=== PATIENT | male | born 1995 | race Caucasian/White ===

== ENCOUNTER 2017-12-16 06:02 | Emergency (ER) | payer SELFPAY ==
--- NOTE | 2017-12-16 07:34 | ER Document Report ---
HPI - HPI Patient complains to provider of: Toothache Pain Level: 5 Context: Patient is a 22-year-old male who presents emergency department with a chief complaint of #11 tooth pain that started last evening. Patient states his been taking 200 mg Motrin at home. He does have a mild headache radiating from his tooth to along his eye. Denies any previous history of migraines. Denies any nausea or vomiting. Denies any vision changes, loss of vision. Has been able tolerate p.o. with any difficulty. Denies any foul odor or foul drainage, difficulty swallowing, difficulty breathing, facial swelling. Admits to temp yesterday of 101 has been fever free today - CONSTITUTIONAL Constitutional: REPORTS: Fever - NEURO Neurology: REPORTS: Headache - bilateral temporal Past Medical History - Social History Smoking Status: Current Every Day Smoker Chew tobacco use (# tins/day): No Frequency of alcohol use: Rare Drug Abuse: None Family History: Reviewed & Not Pertinent Patient has suicidal ideation: No Patient has homicidal ideation: No Renal/ Medical History: Denies: Hx Peritoneal Dialysis Vertical Provider Document - CONSTITUTIONAL Agree With Documented VS: Yes Notes: PHYSICAL EXAM GENERAL: Alert, interacts well. HEENT: NCAT, mild tenderness over tooth 11 without swelling, abscess. MMM, Uvula midline. Airway patent. No evidence of tonsillar enlargement, peritonsillar abscess, retropharyngeal abscess. no evidence of ludwigs angina LUNGS: Clear to auscultation bilaterally, no wheezes, rales, or rhonchi. No respiratory distress. HEART: Regular rate and rhythm. No murmurs, gallops, or rubs. EXTREMITIES: Moves all 4 extremities spontaneously. No edema, radial and dorsalis pedis pulses 2/4 bilaterally. No cyanosis. NEUROLOGICAL: Alert and oriented x4. Normal speech. PSYCH: Normal affect, normal mood. SKIN: Warm, dry, normal turgor. No rashes or lesions noted. - INFECTION CONTROL TRAVEL OUTSIDE OF THE [place] IN LAST 30 DAYS: No - RESPIRATORY O2 Sat by Pulse Oximetry: 96 Course - Re-evaluation Re-evalutation: 12/16/17 08:18 Presentation is most consistent with likely an infected tooth. Airway is patent. Vitals within normal limits. Patient is able swallow without any difficulty. There is no significant facial swelling. Patient will be started on antibiotics and a limited number of pain medications. I've instructed to follow-up with dentistry as earliest ability for definitive management. Return precautions and follow-up recommendations have been discussed at length. Regarding his headache, Patient does not have any focal neurologic deficits, nuchal rigidity, vital signs are within normal limits no papilledema. Patient is otherwise no acute distress and hemodynamically stable. Low index for suspicion of acute subarachnoid hemorrhage, meningitis or mass. Low suspicion for acute life-threatening etiology with intact neuro exam therefore no additional imaging or laboratory testing is indicated. - Vital Signs Vital signs: Temp Pulse Resp BP Pulse Ox 98.4 F 72 18 111/68 96 12/16/17 06:26 12/16/17 06:26 12/16/17 06:26 12/16/17 06:26 12/16/17 06:26 Discharge - Discharge Clinical Impression: Toothache Condition: Good Disposition: HOME, SELF-CARE Additional Instructions: You have been seen for dental pain. It is very important that you follow-up with a dentist for definitive care. Please return if you develop fever greater than 101, swelling in your face, vomiting, difficulty breathing or swallowing, or any other symptoms that are concerning to you. For pain you should take ibuprofen 600 mg every 6 hours as needed. You have been seen in the Emergency Department (ED) for a headache. Please use Tylenol (acetaminophen) or Motrin (ibuprofen) as needed for symptoms, but only as written on the box. As we have discussed, please follow up with your primary care doctor as soon as possible regarding today's ED visit and your headache symptoms. Call your doctor or return to the ED if you have a worsening headache, sudden and severe headache, confusion, slurred speech, facial droop, weakness or numbness in any arm or leg, extreme fatigue, or other symptoms that concern you. [facility] [address] [place], [place] Thursday mornings, by appointment [facility] [address] [place] [address] [facility] [address] [facility] [place] [facility] [address] [place] [facility] [address] [email or web address] [address] [place] [address] Thursday- 8:00am to 5:00 pm Will see patients from other [facility]. Charges based on income and family size and accepts Medicare, Medicaid, and Insurances Will pull molars [facility] Student [facility] [address] Hours of Operation 8:00 am - 4:30 pm weekdays The following dental offices accept Medicaid: [facility] Dr. De Guzman Dr. Mckeon Dr. Lopez Dr. Heller Scout Lawrence, Leonie, and Ottoniel oral surgery Dr. Boss ([place]) Dr. Wesley ([place]) [facility] Drs. Pereira ([place]) Dr. Jack ([place]) [place] [facility] Dr. Barth ([place]) Drs. Reynolds and ([place]) Medicaid Care Line Prescriptions: Butalb/Acetaminophen/Caffeine [Fioricet (50-325-40 mg) Tablet] 1 - 2 tab PO Q4H #10 tab Penicillin V Potassium [Penicillin Vk 500 mg Tablet] 500 mg PO TID 7 Days #21 tablet Forms: Return to Work
[2017-12-16] MEDS ORDERED: PENICILLIN V POTASSIUM 500 MG TABLET PO ONE (08:17)
[2017-12-16] MEDS ORDERED: KETOROLAC TROMETHAMINE INJ/PF 30 MG/1 ML SDV IM ONE (08:17)
[2017-12-16] MEDS ORDERED: ACETAMINOPHEN 325 MG TABLET PO ONE (08:17)
[2017-12-16 09:07] VITALS: BP 124/71
== END 2017-12-16 09:07 | disposition home or self-care (01) ==
LOC: ER 06:02
DX: K08.89 Other specified disorders of teeth and supporting structures (principal); R51 Headache; R50.9 Fever, unspecified; F17.200 Nicotine dependence, unspecified, uncomplicated
CPT/HCPCS: 99282; 96372; J1885

== ENCOUNTER 2018-07-15 12:54 | Emergency (ER) | payer OTHER ==
[2018-07-15] MEDS ORDERED: LIDOCAINE 1.5% INJ-MPF (15 MG/ML) 20 ML AMPUL INJ ONE (14:00)
[2018-07-15] MEDS ORDERED: LIDOCAINE 1% INJ-PF (10 MG/ML) 30 ML SDV INJ ONE (14:02)
--- NOTE | 2018-07-15 14:04 | ER Document Report ---
ED General - General Chief Complaint: Laceration Stated Complaint: FINGER INJURY Time Seen by Provider: 07/15/18 13:56 Mode of Arrival: Ambulatory Information source: Patient Notes: 23-year-old male presents emergency department with complaints of left finger laceration. Patient states that he was using a box machine operator and lost control of it. Tetanus is up-to-date. Patient denies any blood thinner use. Denies any neuro deficits. TRAVEL OUTSIDE OF THE [place] IN LAST 30 DAYS: No - HPI Onset: Just prior to arrival Onset/Duration: Sudden Quality of pain: Throbbing Associated symptoms: None Exacerbated by: Denies Relieved by: Denies Similar symptoms previously: No Recently seen / treated by doctor: No - Related Data Allergies/Adverse Reactions: prednisone Adverse Reaction (Verified 12/16/17 06:24) Past Medical History - General Information source: Patient - Social History Smoking Status: Current Every Day Smoker Family History: Reviewed & Not Pertinent Renal/ Medical History: Denies: Hx Peritoneal Dialysis Review of Systems - Review of Systems Constitutional: No symptoms reported EENT: No symptoms reported Cardiovascular: No symptoms reported Respiratory: No symptoms reported Gastrointestinal: No symptoms reported Genitourinary: No symptoms reported Musculoskeletal: No symptoms reported Skin: Lesions Hematologic/Lymphatic: No symptoms reported Neurological/Psychological: No symptoms reported -: Yes All other systems reviewed and negative Physical Exam - Vital signs Vitals: Temp Pulse BP Pulse Ox 97.4 F 76 103/63 100 07/15/18 13:04 07/15/18 13:04 07/15/18 13:04 07/15/18 13:04 - Notes Notes: PHYSICAL EXAMINATION: GENERAL: Well-appearing, well-nourished and in no acute distress. HEAD: Atraumatic, normocephalic. EYES: Pupils equal round and reactive to light, extraocular movements intact, sclera anicteric, conjunctiva are normal. ENT: Nares patent, oropharynx clear without exudates. Moist mucous membranes. NECK: Normal range of motion, supple without lymphadenopathy LUNGS: Breath sounds clear to auscultation bilaterally and equal. No wheezes rales or rhonchi. HEART: Regular rate and rhythm without murmurs ABDOMEN: Soft, nontender, nondistended abdomen. No guarding, no rebound. No masses appreciated. Musculoskeletal: Normal range of motion, no pitting or edema. No cyanosis. NEUROLOGICAL: Cranial nerves grossly intact. Normal speech, normal gait. Normal sensory, motor exams PSYCH: Normal mood, normal affect. SKIN: Warm, skin avulsion to the L index finger. Course - Re-evaluation Re-evalutation: 07/15/18 14:40 2cm skin avulsion to the L index finger. XR obtained. No foreign body appreciated. Patient is neurologically intact. Full ROM of the Left finger. Bleeding controlled. Wound cleaned and irrigated. Quik clot placed over the avulsed area. Wound wrapped with 4x4 and Coban. Patient is neurologically intact after finger wrapped. I will start the patient on keflex prophylactically. I instructed the patient that he needs to follow-up with his primary care physician for a wound check in a few days. I told the patient if his finger changes color, looks infected, the pain worsens, or he begins running a fever to return to the ED immediately. Patient is agreeable with the plan of care. - Vital Signs Vital signs: Temp Pulse Resp BP Pulse Ox 97.4 F 76 103/63 100 07/15/18 13:04 07/15/18 13:04 07/15/18 13:04 07/15/18 13:04 Procedures - Laceration/Wound Repair Left Finger 2nd digit Time completed: 14:30 Wound length (cm): 2 Wound's Depth, Shape: Other - skin avulsion Laceration pre-procedure: Sterile PPE donned, Chloraprep applied Anesthetic type: 1% Lidocaine Volume Anesthetic (mLs): 5 Wound explored: Clean Irrigated w/ Saline (mLs): 1,000 Wound Repaired With: Other - Quik clot Number of Sutures: 0 Layer Closure?: No Post-procedure wound care: Sterile dressing applied Post-procedure NV exam normal: Yes Complications: No Notes: 07/15/18 14:48 Digital block done to achieve anesthesia to the L index finger. No complications. Discharge - Discharge Clinical Impression: Skin avulsion Condition: Good Disposition: HOME, SELF-CARE Instructions: Laceration Care ([facility]), Prophylactic Antibiotic ([facility]), Soap Cleansing ([facility]) Prescriptions: Cephalexin Monohydrate [Keflex 500 mg Capsule] 500 mg PO BID 5 Days #10 capsule Referrals: MEREDITH DYSON MD [ACTIVE STAFF] - Follow up as needed VIJAY JONES MD [ACTIVE STAFF] - Follow up as needed
--- NOTE | 2018-07-15 14:43 | RADIOLOGY REPORT (SQ) ---
EXAM DESCRIPTION: HAND LEFT 3 VIEWS COMPLETED DATE/TIME: 07/15/2018 2:18 pm REASON FOR STUDY: trauma COMPARISON: None. EXAM PARAMETERS: NUMBER OF VIEWS: Three views. TECHNIQUE: AP, lateral and oblique radiographic images acquired of the left hand. LIMITATIONS: None. FINDINGS: MINERALIZATION: Normal. BONES: No acute fracture or dislocation. No worrisome bone lesions. JOINTS: No effusions. SOFT TISSUES: Skin defect lateral margin distal 2nd phalanx. No foreign body. OTHER: No other significant finding. IMPRESSION: Soft tissue injury. No foreign body. TECHNICAL DOCUMENTATION: JOB ID: [id number] [employer]- All Rights Reserved Reading location - IP/workstation name: [email or web address]
[2018-07-15 15:12] VITALS: BP 103/68
== END 2018-07-15 15:12 | disposition home or self-care (01) ==
LOC: ER 12:54
PROC: 0HQGXZZ Repair Left Hand Skin, External Approach (ICD-10-PCS; principal; 2018-07-15)
DX: S61.211A Laceration without foreign body of left index finger without damage to nail, initial encounter (principal); W26.0XXA Contact with knife, initial encounter
CPT/HCPCS: 99283; 73130; 12001; J3490